=== PATIENT | female | born 1975 | race Caucasian/White ===

== ENCOUNTER 2019-07-06 10:33 | Emergency (ER) | payer OTHER, SELFPAY ==
[2019-07-06 10:43] VITALS: BP 141/92; PULSE 75; RESP 14; TEMP 37; O2SAT 96
--- NOTE | 2019-07-06 11:57 | ED.BACK ---
HPI - Back Pain/Injury General Chief Complaint: Back Pain/Injury Stated Complaint: RADIATING PAIN FROM BACK/CANT STAND ON LEG Time Seen by Provider: 07/06/19 11:30 Source: patient Mode of arrival: ambulatory Limitations: no limitations History of Present Illness HPI Narrative: Patient is a 44-year-old female with chronic back pain presenting with acute worsening left-sided back pain. He says it has flared up and has gotten worse over the last 2 days. She has some tingling down her lateral side of her leg. She said it was quite painful she is unable to bear weight. No changes in bowel or bladder habits. However she does have difficulty finding a proper position on her. She states she normally takes Waddy when become severe. She took 2 Waddy and it has is only helped a little. MD Complaint: back pain Location: lumbar spine Severity: moderate Quality: sharp Related Data Home Medications Medication Instructions Recorded Confirmed olopatadine [Pataday] 0.2 % OPHTH #0 03/22/17 biotin #0 12/25/17 nystatin #0 12/25/17 potassium #0 12/25/17 selenomethionine #0 12/25/17 Previous Rx's Medication Instructions Recorded diazepam [Valium] 5 mg PO BID PRN #10 tab 07/06/19 hydrocodone-acetaminophen [Waddy] 1 tab PO Q6H PRN #10 tab 07/06/19 Allergies Allergy/AdvReac Type Severity Reaction Status Date / Time No Known Drug Allergies Allergy Verified 07/06/19 10:46 Review of Systems Review of Systems GENERAL: Denies chills, fatigue, malaise, fever, sweats, travel HEENT: Denies sinus pain, ear pain, sore throat, difficulty swallowing, neck pain RESPIRATORY: Denies dyspnea, cough, wheezing, hemoptysis, sputum. CARDIOVASCULAR: Denies chest pain, palpitations, orthopnea, edema GASTROINTESTINAL: Denies nausea, vomiting, abdominal pain, diarrhea, constipation, melena. : Denies dysuria, frequency, incontinence, hematuria, urinary retention, flank pain. MUSCULOSKELETAL: See HPI SKIN: No rash, no erythema, no pruritus NEUROLOGIC: Denies weakness, dizziness, headache, numbness, change in speech, confusion PSYCHIATRIC: No concerning psychosocial issues. 12 point review of systems is negative except for those stated above and HPI [facility] Medical History Chronic back pain (Acute) Social History Smoking Status: Former smoker Social History Smoking Status: Former smoker Exam Initial Vital Signs Initial Vital Signs: Vital Signs Temperature 98.6 F 07/06/19 10:43 Pulse Rate 75 07/06/19 10:43 Respiratory Rate 14 07/06/19 10:43 Blood Pressure 141/92 H 07/06/19 10:43 Pulse Oximetry 96 07/06/19 10:43 GENERAL: Appears in mild discomfort and in no acute distress. HEENT: Head atraumatic,EOMI, pupils reactive, CARDIOVASCULAR: Regular rate and rhythm without murmurs, rubs or gallops. RESPIRATORY: Breath sounds equal bilaterally, no wheezes rales or rhonchi. ABDOMEN: Soft, nontender. Normoactive bowel sounds all 4 quadrants. No guarding or rebound. BACK: No tenderness tender left lumbar area. EXTREMITIES: Normal range of motion, no clubbing or edema. Neurovascularly intact NEUROLOGICAL: Alert and oriented x4.Normal gait and speech. Cranial nerves II through XII grossly intact. SKIN: Warm, dry, no laceration, no petechiae, no rashes or lesions. Course Orders Ordered: Discontinued Medications Diazepam (Valium) 10 mg PO NOW ONE Stop: 07/06/19 11:53 Last Admin: 07/06/19 12:08 Dose: 10 mg Ketorolac Tromethamine (Toradol) 60 mg IM NOW ONE Stop: 07/06/19 11:53 Last Admin: 07/06/19 12:08 Dose: 60 mg Vital Signs - 8 hr 07/06/19 10:43 07/06/19 12:40 Temperature 98.6 F Pulse Rate 75 62 Respiratory Rate 14 20 Blood Pressure 141/92 H 116/77 Pulse Oximetry 96 96 MDM - Back Pain/Injury Lab Data Point of Care Testing Test Results Negative Urine Dip Bedside Urine Glucose Negative Bedside Urine Bilirubin - Negative Bedside Urine Ketone - Negative Urine Specific [place] 1.025 Bedside Urine Occult Blood - Negative Bedside Urine pH 6.0 Bedside Urine Protein - Negative Bedside Urine Urobilinogen - Negative Bedside Urine Nitrite - Negative Bedside Urine Leukocytes - Negative Esterase MDM Narrative Medical decision making narrative: Patient has no red flag signs. sHe is needing acute pain management, her previous narcotic medication was . She has but gone through physical therapy multiple times. [place] Discharge Plan Departure Patient Disposition: Home Clinical Impression: Acute exacerbation of chronic low back pain Discharge Date/Time: 07/06/19 12:40 Interventions: ED Discharge Assessment Last Done: 07/06/19 12:40 Instructions: DI for Back Pain With Sciatica Activity Restrictions/Additional Instructions: *You have been diagnosed with acute on chronic back *What to do: Increase activity as tolerated, heating pad light stretching, *Continue to take medications as directed Waddy 1-2 tablets every 6 hours needed for severe pain Valium 5 mg every 12 hours if needed for muscle spasm Motrin 800 mg every 8 hours if needed for [id number] pain *Follow up with your primary care provider in 2-3 days *Return to ER if you should have change in bowel or bladder habits weakness inability to bear weight or walk or any new, worsening or concerning symptoms Prescriptions: New hydrocodone-acetaminophen [Waddy] 5-325 mg tablet 1 tab PO Q6H PRN (Reason: pain) Qty: 10 RF: 0 diazepam [Valium] 5 mg tablet 5 mg PO BID PRN (Reason: muscle spasm) Qty: 10 RF: 0 No Action olopatadine [Pataday] 2.5 ML drops 0.2 % OPHTH Qty: 0 RF: 0 potassium 99 MG tablet Qty: 0 RF: 0 biotin 5 MG tablet Qty: 0 RF: 0 nystatin 15 GM cream Qty: 0 RF: 0 selenomethionine 200 MCG tablet Qty: 0 RF: 0 Referrals: [facility] [Outside]
[2019-07-06] MEDS: KETOROLAC 60 MG/2 ML VIAL IM (12:08)
[2019-07-06] MEDS: diazePAM 5 MG TABLET 10 MG PO (12:08)
--- NOTE | 2019-07-06 12:09 | ED_ITS ---
HPI - Back Pain/Injury General Chief Complaint: Back Pain/Injury Stated Complaint: RADIATING PAIN FROM BACK/CANT STAND ON LEG Time Seen by Provider: 07/06/19 11:30 Source: patient Mode of arrival: ambulatory Limitations: no limitations History of Present Illness HPI Narrative: Patient is a 44-year-old female with chronic back pain presenting with acute worsening left-sided back pain. He says it has flared up and has gotten worse over the last 2 days. She has some tingling down her lateral side of her leg. She said it was quite painful she is unable to bear weight. No changes in bowel or bladder habits. However she does have difficulty finding a proper position on her. She states she normally takes [place] when become severe. She took 2 [place] and it has is only helped a little. MD Complaint: back pain Location: lumbar spine Severity: moderate Quality: sharp Related Data Home Medications Medication Instructions Recorded Confirmed olopatadine [Pataday] 0.2 % OPHTH #0 03/22/17 biotin #0 12/25/17 nystatin #0 12/25/17 potassium #0 12/25/17 selenomethionine #0 12/25/17 Previous Rx's Medication Instructions Recorded diazepam [Valium] 5 mg PO BID PRN #10 tab 07/06/19 hydrocodone-acetaminophen [[place]] 1 tab PO Q6H PRN #10 tab 07/06/19 Allergies Allergy/AdvReac Type Severity Reaction Status Date / Time No Known Drug Allergies Allergy Verified 07/06/19 10:46 Review of Systems Review of Systems GENERAL: Denies chills, fatigue, malaise, fever, sweats, travel HEENT: Denies sinus pain, ear pain, sore throat, difficulty swallowing, neck pain RESPIRATORY: Denies dyspnea, cough, wheezing, hemoptysis, sputum. CARDIOVASCULAR: Denies chest pain, palpitations, orthopnea, edema GASTROINTESTINAL: Denies nausea, vomiting, abdominal pain, diarrhea, constipation, melena. : Denies dysuria, frequency, incontinence, hematuria, urinary retention, flank pain. MUSCULOSKELETAL: See HPI SKIN: No rash, no erythema, no pruritus NEUROLOGIC: Denies weakness, dizziness, headache, numbness, change in speech, confusion PSYCHIATRIC: No concerning psychosocial issues. 12 point review of systems is negative except for those stated above and HPI [facility] Medical History Chronic back pain (Acute) Social History Smoking Status: Former smoker Social History Smoking Status: Former smoker Exam Initial Vital Signs Initial Vital Signs: Vital Signs Temperature 98.6 F 07/06/19 10:43 Pulse Rate 75 07/06/19 10:43 Respiratory Rate 14 07/06/19 10:43 Blood Pressure 141/92 H 07/06/19 10:43 Pulse Oximetry 96 07/06/19 10:43 GENERAL: Appears in mild discomfort and in no acute distress. HEENT: Head atraumatic,EOMI, pupils reactive, CARDIOVASCULAR: Regular rate and rhythm without murmurs, rubs or gallops. RESPIRATORY: Breath sounds equal bilaterally, no wheezes rales or rhonchi. ABDOMEN: Soft, nontender. Normoactive bowel sounds all 4 quadrants. No guarding or rebound. BACK: No tenderness tender left lumbar area. EXTREMITIES: Normal range of motion, no clubbing or edema. Neurovascularly intact NEUROLOGICAL: Alert and oriented x4.Normal gait and speech. Cranial nerves II through XII grossly intact. SKIN: Warm, dry, no laceration, no petechiae, no rashes or lesions. Course Orders Ordered: Discontinued Medications Diazepam (Valium) 10 mg PO NOW ONE Stop: 07/06/19 11:53 Last Admin: 07/06/19 12:08 Dose: 10 mg Ketorolac Tromethamine (Toradol) 60 mg IM NOW ONE Stop: 07/06/19 11:53 Last Admin: 07/06/19 12:08 Dose: 60 mg Vital Signs - 8 hr 07/06/19 10:43 07/06/19 12:40 Temperature 98.6 F Pulse Rate 75 62 Respiratory Rate 14 20 Blood Pressure 141/92 H 116/77 Pulse Oximetry 96 96 MDM - Back Pain/Injury Lab Data Point of Care Testing Test Results Negative Urine Dip Bedside Urine Glucose Negative Bedside Urine Bilirubin - Negative Bedside Urine Ketone - Negative Urine Specific [place] 1.025 Bedside Urine Occult Blood - Negative Bedside Urine pH 6.0 Bedside Urine Protein - Negative Bedside Urine Urobilinogen - Negative Bedside Urine Nitrite - Negative Bedside Urine Leukocytes - Negative Esterase MDM Narrative Medical decision making narrative: Patient has no red flag signs. sHe is needing acute pain management, her previous narcotic medication was . She has but gone through physical therapy multiple times. [place] Discharge Plan Departure Patient Disposition: Home Clinical Impression: Acute exacerbation of chronic low back pain Discharge Date/Time: 07/06/19 12:40 Interventions: ED Discharge Assessment Last Done: 07/06/19 12:40 Instructions: DI for Back Pain With Sciatica Activity Restrictions/Additional Instructions: *You have been diagnosed with acute on chronic back *What to do: Increase activity as tolerated, heating pad light stretching, *Continue to take medications as directed [place] 1-2 tablets every 6 hours needed for severe pain Valium 5 mg every 12 hours if needed for muscle spasm Motrin 800 mg every 8 hours if needed for [id number] pain *Follow up with your primary care provider in 2-3 days *Return to ER if you should have change in bowel or bladder habits weakness inability to bear weight or walk or any new, worsening or concerning symptoms Prescriptions: New hydrocodone-acetaminophen [[place]] 5-325 mg tablet 1 tab PO Q6H PRN (Reason: pain) Qty: 10 RF: 0 diazepam [Valium] 5 mg tablet 5 mg PO BID PRN (Reason: muscle spasm) Qty: 10 RF: 0 No Action olopatadine [Pataday] 2.5 ML drops 0.2 % OPHTH Qty: 0 RF: 0 potassium 99 MG tablet Qty: 0 RF: 0 biotin 5 MG tablet Qty: 0 RF: 0 nystatin 15 GM cream Qty: 0 RF: 0 selenomethionine 200 MCG tablet Qty: 0 RF: 0 Referrals: [facility] [Outside]
[2019-07-06 12:40] VITALS: BP 116/77; PULSE 62; RESP 20; O2SAT 96
== END 2019-07-06 12:40 | disposition home or self-care (01) ==
PROVIDERS: Emergency Provider Emergency Medicine
DX: M54.5 Low back pain (principal); G89.29 Other chronic pain
CPT/HCPCS: 81003; 81025; 96372; 99282; 99283; J1885

== ENCOUNTER → 2019-07-28 11:28 | Outpatient (CLI) | payer OTHER, SELFPAY ==
--- NOTE | 2019-07-28 | DI.MRI.S_ITS ---
PROCEDURE: MR HIP LT WO CON INDICATIONS: Pain in unspecified hip TECHNIQUE: Noncontrast coronal T1 spin echo and STIR through the bony pelvis. Coronal and axial T2 fast spin echo with fat saturation, sagittal T1 spin echo, and oblique axial T2 fast spin echo with fat saturation through the hip. COMPARISON: None. FINDINGS: Image quality: Excellent. Bones and joints: Bone marrow of the pelvic ring and proximal femurs show normal signal throughout. No intraosseous lesions or fractures. No avascular necrosis of the femoral heads. The visualized lower lumbar spine appears normally aligned. Tendons and ligaments: The gluteus medius and minimus tendons appear intact, without associated muscle atrophy. Gluteus minimus and gluteus medius tendons are slightly thickened with increased internal signal compatible with mild tendinosis. Small amount of fluid noted in the bilateral trochanteric bursa compatible with trochanteric bursitis. The nearby proximal iliotibial band also appears intact. The iliopsoas tendon appears intact, without adjacent bursal fluid collections or evidence for impingement syndrome. The origin of the hamstring tendon is intact at the ischial tuberosity, as well as the associated sacrotuberous ligament. There is thickening of the hamstring tendon at the ischial tuberosity compatible with tendinosis. The straight and reflected heads of the rectus femoris muscle origin appear intact, as well as the conjoint tendon. The ligamentum teres appears intact where visualized. Labrum and cartilage: Fluid undercutting the contralateral junction (series 3, images 17-18) which may represent chondral labral junction tear versus labral sulcus. Cartilage surface of the femoral head appears of normal thickness. Soft tissues: Visualized muscles demonstrate normal bulk and internal signal. Quadratus femoris muscle demonstrates no internal edema to suggest ischiofemoral impingement. The proximal sciatic neurovascular bundle appears normal adjacent to the hamstring tendons. No free pelvic fluid. Bladder wall thickness is normal. Genitourinary structures and bowel loops appear normal where visualized. IMPRESSION: 1. Left hip chondral labral junction tear versus prominent labral sulcus. 2. Bilateral trochanteric bursitis. 3. Left gluteus minimus, gluteus minimus and hamstring tendinopathy. Dictated by: Greer Moyer MD, PhD on 07/28/2019 at 16:32 Approved by: Greer Moyer MD, PhD on 07/29/2019 at 10:07
== END ==
PROVIDERS: Visit Provider Family Medicine
DX: M25.552 Pain in left hip (principal); M70.62 Trochanteric bursitis, left hip
CPT/HCPCS: 73721

== ENCOUNTER 2020-04-06 19:05 | Emergency (ER) | payer OTHER, SELFPAY ==
[2020-04-06 19:24] VITALS: BP 145/83; PULSE 72; RESP 18; TEMP 36.6; O2SAT 99
--- NOTE | 2020-04-06 20:03 | ED.ABDPAIN ---
HPI - Abdominal Pain <FABIAN Callahan-BC - Last Filed: 04/06/20 20:36> General Chief Complaint: Abdominal Pain Stated Complaint: swelling around belly button area Time Seen by Provider: 04/06/20 19:43 Source: patient Mode of arrival: Ambulatory Limitations: no limitations History of Present Illness HPI narrative: The patient is a 44-year-old female former smoker with history of seasonal allergies who presents with a chief complaint of a concerned about her umbilicus. She states that she has swelling around belly button, she noticed it last month it has recurred. She denies any fevers, nausea vomiting diarrhea. She states that sometimes hurts symptoms such as not. She is concerned about a possible umbilical hernia. She states that she called the [employer] nurse line, who stated that she had to come to the emergency department with an 8 hours to be evaluated she states that she has an appointment with her PCP on Thursday. She denies any dysuria urgency or frequency. She denies any possibility of at this point time. She denies any current pain. She denies any redness, erythema or drainage. Related Data Home Medications Medication Instructions Recorded Confirmed olopatadine [Pataday] 0.2 % OPHTH #0 03/22/17 biotin #0 12/25/17 nystatin #0 12/25/17 potassium #0 12/25/17 selenomethionine #0 12/25/17 Previous Rx's Medication Instructions Recorded diazepam [Valium] 5 mg PO BID PRN #10 tab 07/06/19 hydrocodone-acetaminophen [[place]] 1 tab PO Q6H PRN #10 tab 07/06/19 Allergies Allergy/AdvReac Type Severity Reaction Status Date / Time No Known Drug Allergies Allergy Verified 07/06/19 10:46 Review of Systems <TE Callahan - Last Filed: 04/06/20 20:36> Review of Systems Narrative: GENERAL: Denies chills, fatigue, malaise, fever, sweats. HEENT: Denies sinus pain, ear pain, sore throat, difficulty swallowing, dizziness. RESPIRATORY: Denies dyspnea, cough, wheezing, hemoptysis, sputum. CARDIOVASCULAR: Denies chest pain, palpitations, orthopnea, edema, GASTROINTESTINAL: See HPI : Denies dysuria, frequency, incontinence, hematuria, urinary retention. MUSCULOSKELETAL: denies weakness, joint pain, or bony pain SKIN: Denies rash, skin lesions, or other NEUROLOGIC: Denies weakness, headache, numbness, change in speech, confusion, seizures, incoordination. PSYCHIATRIC: No concerning psychosocial issues. 12 point review of systems is negative except for those stated above Patient History <FABIAN Callahan-BC - Last Filed: 04/06/20 20:36> Social History Smoking Status: Former smoker Smoking Status: Former smoker alcohol intake frequency: 0-2 drinks per day Substance Use Type: does not use Exam <FABIAN Callahan- - Last Filed: 04/06/20 20:36> Narrative Exam Narrative: GENERAL: This is a well-nourished, well-developed patient, no acute distress HEAD: Atraumatic. Normocephalic. No temporal or scalp tenderness. EYES: Pupils equal round and reactive. Extraocular motions intact. No scleral icterus. No injection or drainage. ENT: Nose without bleeding, purulent drainage or septal hematoma. Throat without erythema, tonsillar hypertrophy or exudate. Uvula midline. Airway patent. NECK: Trachea midline. No JVD or lymphadenopathy. Supple, nontender, no meningeal signs. CARDIOVASCULAR: Regular rate and rhythm RESPIRATORY: Clear to auscultation. Breath sounds equal bilaterally. No wheezes, rales, or rhonchi. No cough. No increased respiratory effort. No accessory muscle use. GASTROINTESTINAL: Abdomen soft, non-tender, nondistended. No hepato-splenomegaly, or palpable masses. No guarding. Small protrusion noted at umbilicus. Soft and nontender to palpation. Overall abdomen is nontender, no guarding, active bowel sounds EXTREMITIES: No clubbing, cyanosis, or edema. No joint tenderness, effusion, or edema noted. BACK: Nontender without deformity or crepitance. No flank tenderness. NEURO: AOx3. SKIN: No rash or erythema on visible skin. No erythema or drainage laceration or abrasion noted around umbilicus Initial Vital Signs Initial Vital Signs: Vital Signs Temperature 97.9 F 04/06/20 19:24 Pulse Rate 72 04/06/20 19:24 Respiratory Rate 18 04/06/20 19:24 Blood Pressure 145/83 H 04/06/20 19:24 Pulse Oximetry 99 04/06/20 19:24 <Angelica Lorenzana MD - Last Filed: 04/06/20 22:04> Initial Vital Signs Initial Vital Signs: Vital Signs Temperature 97.9 F 04/06/20 19:24 Pulse Rate 72 04/06/20 19:24 Respiratory Rate 18 04/06/20 19:24 Blood Pressure 145/83 H 04/06/20 19:24 Pulse Oximetry 99 04/06/20 19:24 Course <TE Callahan - Last Filed: 04/06/20 20:36> Vital Signs Vital signs: Vital Signs - 8 hr 04/06/20 19:24 04/06/20 20:25 Temperature 97.9 F Pulse Rate 72 77 Respiratory Rate 18 16 Blood Pressure 145/83 H 140/84 Pulse Oximetry 99 98 <Angelica Lorenzana MD - Last Filed: 04/06/20 22:04> Vital Signs Vital signs: Vital Signs - 8 hr 04/06/20 19:24 04/06/20 20:25 Temperature 97.9 F Pulse Rate 72 77 Respiratory Rate 18 16 Blood Pressure 145/83 H 140/84 Pulse Oximetry 99 98 MDM - Abdominal Pain <TE Callahan - Last Filed: 04/06/20 20:36> Lab Data Point of care testing: Point of Care Testing Test Results Negative Urine Dip Bedside Urine Glucose Negative Bedside Urine Bilirubin - Negative Bedside Urine Ketone - Negative Urine Specific [place] 1.015 Bedside Urine Occult Blood - Negative Bedside Urine pH 6.0 Bedside Urine Protein - Negative Bedside Urine Urobilinogen - Negative Bedside Urine Nitrite - Negative Bedside Urine Leukocytes - Negative Esterase MDM Narrative Medical decision making narrative: The patient is a 44-year-old female who presents with chief complaint of umbilical pain and swelling for the past year. Exam reveals small possible hernia. No signs of strangulation or other acute etiology. She is overall nontender in the emergency department, no fever, no vomiting eating and drinking well in appearing overall nontoxic. Patient states that she is here because of her insurance provider telling her to come in to make her feel better. I discussed at length possibility of doing imaging and lab work, she does not want to do that today nor do I think it is necessary at this point time. Encourage PCP follow-up in the next few days which he already has scheduled. Discussed at length coming back to the ER for acute concerns. Patient has no questions or concerns upon discharge and states understanding of return precautions as well as follow-up care. Hemodynamically stable and nontoxic throughout her stay in the ER <Angelica Lorenzana MD - Last Filed: 04/06/20 22:04> Lab Data Point of care testing: Point of Care Testing Test Results Negative Urine Dip Bedside Urine Glucose Negative Bedside Urine Bilirubin - Negative Bedside Urine Ketone - Negative Urine Specific [place] 1.015 Bedside Urine Occult Blood - Negative Bedside Urine pH 6.0 Bedside Urine Protein - Negative Bedside Urine Urobilinogen - Negative Bedside Urine Nitrite - Negative Bedside Urine Leukocytes - Negative Esterase Discharge Plan Departure Patient Disposition: Home Clinical Impression: Umbilical abnormality Discharge Date/Time: 04/06/20 20:25 Instructions: Abdominal Hernia Activity Restrictions/Additional Instructions: Thank you for trusting us with your care today. Please follow-up with primary care provider in the next few days as you have arranged. It is possible that you have an umbilical hernia. Please monitor for fevers, inability keep down fluids, abdominal pain or any acute concerns. Please come back to the emergency department for any acute concerns. Prescriptions: No Action olopatadine [Pataday] 2.5 ML drops 0.2 % OPHTH Qty: 0 RF: 0 potassium 99 MG tablet Qty: 0 RF: 0 biotin 5 MG tablet Qty: 0 RF: 0 nystatin 15 GM cream Qty: 0 RF: 0 selenomethionine 200 MCG tablet Qty: 0 RF: 0 hydrocodone-acetaminophen [[place]] 5-325 mg tablet 1 tab PO Q6H PRN (Reason: pain) Qty: 10 RF: 0 diazepam [Valium] 5 mg tablet 5 mg PO BID PRN (Reason: muscle spasm) Qty: 10 RF: 0 Referrals: [facility] [Provider Group] <Angelica Lorenzana MD - Last Filed: 04/06/20 22:04> Cosign ED Attending Lilaature Attestation: I was immediately available in the department for consultation throughout this patient's visit. I agree with documentation as above. Angelica Lorenzana MD
[2020-04-06 20:25] VITALS: BP 140/84; PULSE 77; RESP 16; O2SAT 98
== END 2020-04-06 20:25 | disposition home or self-care (01) ==
PROVIDERS: Emergency Provider Nurse Practitioner Family
DX: R19.05 Periumbilic swelling, mass or lump (principal)
CPT/HCPCS: 81003; 81025; 99282

== ENCOUNTER 2020-05-06 07:07 | Emergency (ER) | payer OTHER, SELFPAY ==
[2020-05-06 07:10] VITALS: BP 136/77; PULSE 88; RESP 16; TEMP 36.9; O2SAT 97; BMI 34.4
--- NOTE | 2020-05-06 07:31 | ED.NECK ---
HPI - Neck Pain/Injury General Chief Complaint: Upper Respiratory Symptoms Stated Complaint: Pain w/swallowing, swollen, inflamed ear & neck Time Seen by Provider: 05/06/20 07:10 History of Present Illness HPI Narrative: CC: sore neck with sore throat and pain on swallowing HPI: The patient is a 44-year-old female who is talking to the nurse during triage no acute distress. She presents with pain and difficulty on swallowing. She stated that it started yesterday. She took Claritin last night without any relief. The patient states that she has allergies to grass and she speaks with a nasal quality. She has received no relief from the Chloraseptic throat spray. Her left ear has been sore and aches and intermittently feel has crackles in feels as though it is puffy, swollen and muffled with intermittent popping. She has had no fever or sweats but had intermittent chills last night. She has had some mild shortness of breath without cough or wheezing. She denies any significant nasal drainage or swelling. She has had no abdominal pain nausea vomiting or diarrhea. She is a former smoker and quit smoking 8 years ago. She drinks alcohol socially. She was using marijuana last night so that she could sleep. She on denies diabetes mellitus or asthma as well as hypertension. Related Data Home Medications Medication Instructions Recorded Confirmed olopatadine [Pataday] 0.2 % OPHTH #0 03/22/17 biotin #0 12/25/17 nystatin #0 12/25/17 potassium #0 12/25/17 selenomethionine #0 12/25/17 Previous Rx's Medication Instructions Recorded diazepam [Valium] 5 mg PO BID PRN #10 tab 07/06/19 hydrocodone-acetaminophen [[place]] 1 tab PO Q6H PRN #10 tab 07/06/19 amoxicillin-pot clavulanate 1 tab PO BID #14 tab 05/06/20 [Augmentin] loratadine [Claritin] 10 mg PO DAILY #10 tab 05/06/20 prednisone 40 mg PO DAILY #10 tab 05/06/20 Allergies Allergy/AdvReac Type Severity Reaction Status Date / Time No Known Drug Allergies Allergy Verified 05/06/20 07:41 Review of Systems Review of Systems Narrative: All review of systems were negative except for those mentioned in the history of present illness. Patient History Medical History Chronic back pain (Acute) Social History Smoking Status: Former smoker Smoking Status: Former smoker alcohol intake frequency: 0-2 drinks per day Substance Use Type: does not use Exam Narrative Exam Narrative: PHYSICAL EXAM: CONSTITUTIONAL: Awake, Alert, Oriented, Coherent, Cooperative in NAD. Does not appear toxic or ill. HEAD: AT/NC EENT: PERRL, FROM of eyes, no discharge, no nystagmus EARS:No drainage from the ears, Tympanic membranes intact bilaterally, clear EAC, left tympanic membrane is dark and dull without significant erythema. NOSE:No epistaxis or nasal drainage, no significant swelling of the nasal turbinate MOUTH:Oral mucosa is moist and pink, posterior pharynx is without erythema or exudate. NECK: Supple, no obvious JVD, Trachea is midline without stridor. The left anterior cervical triangle and the submandibular space is mildly swollen, tense, firm, tender without fluctuance secondary to inflammation. There is no warmth or erythema noted. SPINE: Palpation of the cervical, Thoracic, Lumbar or Sacral spine reveals no gross deformity or tenderness. No CVA tenderness. THORAX: No deformity, chest wall tenderness. LUNGS: Clear, symmetrical breath sounds without respiratory distress. HEART: Normal heart tones, regular rhythm and rate without murmur. ABDOMEN: Soft, non-tender, normal bowel sounds without guarding, rebound, rigidity or palpable mass. LYMPHATIC: no palpable lymph nodes or spleen. SKIN: No rash, bruising, petechiae or purpura. NEURO: Awake, alert, oriented, conversive, cranial nerves II-XII are symmetrical , moves all 4 extremities and is ambulatory. MENTAL HEALTH: Does not appear anxious or depressed. Initial Vital Signs Initial Vital Signs: Vital Signs Temperature 98.5 F 05/06/20 07:10 Pulse Rate 88 05/06/20 07:10 Respiratory Rate 16 05/06/20 07:10 Blood Pressure 136/77 05/06/20 07:10 Pulse Oximetry 97 05/06/20 07:10 Course Orders Ordered: Discontinued Medications Amoxicillin/Clavulanate Potassium (Augmentin 875-125 Mg) 1 tab PO NOW ONE Stop: 05/06/20 07:44 Last Admin: 05/06/20 07:55 Dose: 1 tab Documented by: CATERNIA Prednisone (Deltasone) 60 mg PO NOW ONE Stop: 05/06/20 07:44 Last Admin: 05/06/20 07:54 Dose: 60 mg Documented by: CATERINA Vital Signs Vital signs: Vital Signs - 8 hr 05/06/20 07:10 Temperature 98.5 F Pulse Rate 88 Respiratory Rate 16 Blood Pressure 136/77 Pulse Oximetry 97 Discharge Plan Departure Patient Disposition: Home Clinical Impression: Cervical lymphadenopathy, Otalgia of left ear Pharyngitis Qualifiers: Pharyngitis/tonsillitis etiology: unspecified etiology Qualified Code(s): J02.9 - Acute pharyngitis, unspecified Discharge Date/Time: 05/06/20 08:28 Instructions: DI for Pharyngitis/Tonsillopharyngitis -- Adult, DI for Ear Pain-Adult, DI for Lymphangitis-Adult Activity Restrictions/Additional Instructions: 1. Follow-up with your primary care physician and be rechecked in 48-72 hours 2. Continue taking the Claritin as previously prescribed 3. Take the prednisone to help with the swelling pain and discomfort as prescribed 4. Take the Augmentin to make sure that you do not develop an infection which will cancel your upcoming surgery. 5. If you developed a cough worsening nasal congestion, drainage down the back of years throat, worsening pain, productive cough, fever you need to return to the emergency department. Prescriptions: New amoxicillin-pot clavulanate [Augmentin] 875-125 mg tablet 1 tab PO BID Qty: 14 RF: 0 prednisone 20 mg tablet 40 mg PO DAILY Qty: 10 RF: 0 loratadine [Claritin] 10 mg tablet 10 mg PO DAILY Qty: 10 RF: 0 No Action olopatadine [Pataday] 2.5 ML drops 0.2 % OPHTH Qty: 0 RF: 0 potassium 99 MG tablet Qty: 0 RF: 0 biotin 5 MG tablet Qty: 0 RF: 0 nystatin 15 GM cream Qty: 0 RF: 0 selenomethionine 200 MCG tablet Qty: 0 RF: 0 hydrocodone-acetaminophen [[place]] 5-325 mg tablet 1 tab PO Q6H PRN (Reason: pain) Qty: 10 RF: 0 diazepam [Valium] 5 mg tablet 5 mg PO BID PRN (Reason: muscle spasm) Qty: 10 RF: 0
[2020-05-06] MEDS: predniSONE 20 MG TABLET 60 MG PO (07:54)
[2020-05-06] MEDS: AMOXICILLIN/CLAV 875/125 MG 1 TAB PO (07:55)
[2020-05-06 08:22] VITALS: BP 116/77; PULSE 81; RESP 20; O2SAT 95
== END 2020-05-06 08:28 | disposition home or self-care (01) ==
PROVIDERS: Emergency Provider Emergency Medicine
DX: J02.9 Acute pharyngitis, unspecified (principal); H92.02 Otalgia, left ear; R59.0 Localized enlarged lymph nodes; Z87.891 Personal history of nicotine dependence
CPT/HCPCS: 99283

== ENCOUNTER → 2020-11-02 09:20 | Outpatient (CLI) | payer OTHER, SELFPAY ==
--- NOTE | 2020-11-02 | DI.US.S_ITS ---
ULTRASOUND OF LEFT BREAST: 11/02/2020 CLINICAL: 6 month follow-up of cysts. Comparison is made to exams dated: 11/02/2020 mammogram - [facility], 11/01/2019 mammogram, 11/01/2019 ultrasound, 04/19/2019 ultrasound, 04/19/2019 mammogram, and 11/01/2018 mammogram - [facility]. Color flow and real-time ultrasound of the left breast were performed. Arreguin scale images of the real-time examination were reviewed. Redemonstration of previously described 0.7 cm x 0.7 cm x 0.5 cm oval mass in the left breast at 2 o'clock anterior depth 2 cm from the nipple. This oval mass is hypoechoic with no posterior acoustic shadowing or enhancement. This correlates with mammography findings. Color flow imaging demonstrates that there is no vascularity present. IMPRESSION: BENIGN There is no sonographic evidence of malignancy. The 0.7 cm x 0.7 cm x 0.5 cm oval mass in the left breast has remained stable for two years and is consistent with a benign process. Return to annual mammogram screening schedule is recommended. Findings and recommendations were conveyed to the patient during today's evaluation. This exam was interpreted at Station ID: [id number]. Electronically Signed By: Henry Meza M.D. aty/:11/02/2020 15:05:35 letter sent: Normal Exam Ultrasound BI-RADS: 2 Benign
--- NOTE | 2020-11-02 | DI.MG.S_ITS ---
BILATERAL DIGITAL DIAGNOSTIC MAMMOGRAM 3D/2D SHORT-TERM FOLLOW-UP: 11/02/2020 CLINICAL: Patient returns for a 12 month follow up of the left breast, due for bilateral exam. Comparison is made to exams dated: 11/01/2019 mammogram, 04/19/2019 mammogram, and 11/01/2018 mammogram - [facility]. The tissue of both breasts is heterogeneously dense. This may lower the sensitivity of mammography. There is a 0.7 cm oval equal density mass in the left breast at 2 o'clock anterior depth. This is not significantly changed and correlates with prior ultrasound findings. No other significant masses, calcifications, or other findings are seen in either breast. IMPRESSION: INCOMPLETE: NEEDS ADDITIONAL IMAGING EVALUATION The 0.7 cm oval equal density mass in the left breast is indeterminate. An ultrasound is recommended for further evaluation and is scheduled to immediately follow this examination. This exam was interpreted at Station ID: [id number]. NOTE: For mammograms, a report in lay terms will be sent to the patient. Approximately 15% of breast malignancies will not be visualized mammographically. In the management of a palpable breast mass, a negative mammogram must not discourage biopsy of a clinically suspicious lesion. Electronically Signed By: Henry Meza M.D. aty/:11/02/2020 10:06:24 ACR BI-RADS Category 0: Incomplete [id number]
== END ==
PROVIDERS: PCP Family Medicine; Referring Provider Family Medicine; Visit Provider Family Medicine
DX: R92.8 Other abnormal and inconclusive findings on diagnostic imaging of breast (principal); N63.21 Unspecified lump in the left breast, upper outer quadrant
CPT/HCPCS: 76642; 77066; G0279

== ENCOUNTER 2021-01-03 14:53 | Emergency (ER) | payer OTHER, SELFPAY ==
[2021-01-03 14:57] VITALS: BP 154/94; PULSE 85; RESP 14; TEMP 36.9; O2SAT 97; BMI 31.3
--- NOTE | 2021-01-03 15:01 | DI.US.S_ITS ---
PROCEDURE: US PERIPH VENOUS LOW EXTREM RT INDICATIONS: rule out dvt TECHNIQUE: Real-time imaging, as well as color and pulse Doppler interrogation, were performed of the lower extremity deep veins from the inguinal ligament to the popliteal fossa. COMPARISON: None. FINDINGS: The common femoral, femoral and popliteal veins are normally compressible, and free of intraluminal thrombus. Color and pulse Doppler demonstrate normal phasic intraluminal flow. There is normal augmentation response to distal compression maneuver. IMPRESSION: No DVT found. Dictated by: Donavon Ayala M.D. on 01/03/2021 at 16:13 Approved by: Donavon Ayala M.D. on 01/03/2021 at 16:14
--- NOTE | 2021-01-03 16:44 | ED_ITS ---
HPI - Extremity Problem General Chief complaint: Extremity Problem,Nontraumatic Stated complaint: Knot In Back of Knee,R/O Clot Time Seen by Provider: 01/03/21 16:18 Source: patient Mode of arrival: Ambulatory Limitations: no limitations History of Present Illness HPI Narrative: Patient is a 45-year-old female with history of right leg pain right behind her knee ongoing for the last 2 days. She has been in the car traveling around the state but not for prolonged periods of time. She has had no significant swelling she is not on control no prior history of blood clots or multiple miscarriages. She denies any redness or fever no chest pain or shortness of breath. She is scheduled to have a colonoscopy tomorrow she does have a history of colon polyps in this is a routine colonoscopy for her. MD Complaint: extremity pain Onset (ago): day(s) Pain Consistency: now resolved Quality: aching Radiation: none Related Data Home Medications Medication Instructions Recorded Confirmed olopatadine [Pataday] 0.2 % OPHTH #0 03/22/17 biotin #0 12/25/17 nystatin #0 12/25/17 potassium #0 12/25/17 selenomethionine #0 12/25/17 Previous Rx's Medication Instructions Recorded diazepam [Valium] 5 mg PO BID PRN #10 tab 07/06/19 hydrocodone-acetaminophen [[place]] 1 tab PO Q6H PRN #10 tab 07/06/19 amoxicillin-pot clavulanate 1 tab PO BID #14 tab 05/06/20 [Augmentin] loratadine [Claritin] 10 mg PO DAILY #10 tab 05/06/20 prednisone 40 mg PO DAILY #10 tab 05/06/20 Allergies Allergy/AdvReac Type Severity Reaction Status Date / Time No Known Drug Allergies Allergy Verified 01/03/21 14:58 Review of Systems Review of Systems Narrative: GENERAL: Denies chills, fatigue, malaise, fever, sweats, travel HEENT: Denies sinus pain, ear pain, sore throat, difficulty swallowing, neck pain RESPIRATORY: Denies dyspnea, cough, wheezing, hemoptysis, sputum. CARDIOVASCULAR: Denies chest pain, palpitations, orthopnea, edema GASTROINTESTINAL: Denies nausea, vomiting, abdominal pain, diarrhea, constipation, melena. : Denies dysuria, frequency, incontinence, hematuria, urinary retention, flank pain. MUSCULOSKELETAL: See HPI SKIN: No rash, no erythema, no pruritus NEUROLOGIC: Denies weakness, dizziness, headache, numbness, change in speech, co nfusion PSYCHIATRIC: No concerning psychosocial issues. 12 point review of systems is negative except for those stated above and HPI Patient History Medical History (Updated 01/03/21 @ 16:54 by Magdalena Milian DO) Chronic back pain Social History Smoking Status: Former smoker Smoking Status: Former smoker alcohol intake frequency: a few times a week Substance Use Type: does not use Exam Initial Vital Signs Initial Vital Signs: Vital Signs Temperature 98.4 F 01/03/21 14:57 Pulse Rate 85 01/03/21 14:57 Respiratory Rate 14 01/03/21 14:57 Blood Pressure 154/94 H 01/03/21 14:57 Pulse Oximetry 97 01/03/21 14:57 GENERAL: Alert well-appearing 45-year-old female and in no acute distress. HEENT: Head atraumatic,EOMI, pupils reactive, face symmetric, moist mucous membranes CARDIOVASCULAR: Regular rate and rhythm without murmurs, rubs or gallops. RESPIRATORY: Breath sounds equal bilaterally, no wheezes rales or rhonchi. EXTREMITIES: Normal range of motion, no clubbing or edema. Neurovascularly intact. No significant pain or swelling no erythema no calf pain NEUROLOGICAL: Alert and oriented x4.Normal gait and speech. Cranial nerves II through XII grossly intact. SKIN: Warm, dry, no laceration, no petechiae, no rashes or lesions. Scores Wells' Criteria for DVT Active Cancer (Treatment within 6 months): No Bedridden recently >3 days or major surgery within 4 weeks: No Calf Swelling >3cm compared to other leg: No Collateral (nonvericose) superficial veins present: No Entire leg swollen: No Localized tenderness along the deep vein system: No Pitting edema, confined to symtomatic leg: No Paralysis, paresis, or recent plaster immobilization of ext: No Previously documented DVT: No Alternative dx to DVT as likely or more likely: No Wells' criteria for DVT: 0 Course Orders Ordered: ED Orders 01/03/21 15:01 US periph venous low extrem rt Stat Vital Signs Vital signs: Vital Signs - 8 hr 01/03/21 14:57 Temperature 98.4 F Pulse Rate 85 Respiratory Rate 14 Blood Pressure 154/94 H Pulse Oximetry 97 MDM - Extremity (Nontraumatic) Imaging Data US - DVT: Radiologist's Impression: PROCEDURE: US PERIPH VENOUS LOW EXTREM RT INDICATIONS: rule out dvt TECHNIQUE: Real-time imaging, as well as color and pulse Doppler interrogation, were performed of the lower extremity deep veins from the inguinal ligament to the popliteal fossa. COMPARISON: None. FINDINGS: The common femoral, femoral and popliteal veins are normally compressible, and free of intraluminal thrombus. Color and pulse Doppler demonstrate normal phasic intraluminal flow. There is normal augmentation response to distal compression maneuver. IMPRESSION: No DVT found. Dictated by: Donavon Ayala M.D. on 01/03/2021 at 16:13 MDM Narrative Medical decision making narrative: Patient is low risk for DVT ultrasound is negative. I did discuss with her that she may need whole leg ultrasound in the next week if she is still having symptoms and I encouraged her to wear compression socks Discharge Plan Departure Patient Disposition: Home Clinical Impression: Acute leg pain Qualifiers: Laterality: right Qualified Code(s): M79.604 - Pain in right leg Instructions: Deep Vein Thrombosis Activity Restrictions/Additional Instructions: *You have been diagnosed with leg pain *What to do: At this time no evidence of blood clot. However if her pain is getting worse 3 having increased leg swelling you need a repeat ultrasound. Also please wear compression socks this will help ear pain and swelling *Continue to take medications as directed *Follow up with your primary care provider in 2-3 days *Return to ER if you should have increasing pain swelling redness shortness of breath or any new, worsening or concerning symptoms Prescriptions: No Action olopatadine [Pataday] 2.5 ML drops 0.2 % OPHTH Qty: 0 RF: 0 potassium 99 MG tablet Qty: 0 RF: 0 biotin 5 MG tablet Qty: 0 RF: 0 nystatin 15 GM cream Qty: 0 RF: 0 selenomethionine 200 MCG tablet Qty: 0 RF: 0 hydrocodone-acetaminophen [[place]] 5-325 mg tablet 1 tab PO Q6H PRN (Reason: pain) Qty: 10 RF: 0 diazepam [Valium] 5 mg tablet 5 mg PO BID PRN (Reason: muscle spasm) Qty: 10 RF: 0 amoxicillin-pot clavulanate [[place]ment[place]] 875-125 mg tablet 1 tab PO BID Qty: 14 RF: 0 prednisone 20 mg tablet 40 mg PO DAILY Qty: 10 RF: 0 loratadine [Claritin] 10 mg tablet 10 mg PO DAILY Qty: 10 RF: 0 Referrals: Kathi Beatty DO [Primary Care Provider] -
[2021-01-03 17:02] VITALS: BP 145/88; PULSE 83; O2SAT 97
== END 2021-01-03 17:03 | disposition home or self-care (01) ==
PROVIDERS: Emergency Provider Emergency Medicine; PCP Family Medicine
DX: M79.604 Pain in right leg (principal)
CPT/HCPCS: 87635; 93971; 99283; C9803

== ENCOUNTER 2021-01-04 07:27 | Day surgery (SDC) | payer OTHER, SELFPAY ==
--- NOTE | 2021-01-04 07:41 | PM.HP.1 ---
History of Present Illness History of Present Illness Date Patient Seen: 01/04/21 Time Patient Seen: 07:41 Chief complaint: SDC Narrative: This is a 45-year-old woman with a history of colon polyps on prior colonoscopy, beginning when she was 28 years old.. She had a colonoscopy 5 years ago, during which no polyps were found. She is here for follow-up surveillance colonoscopy. She denies any new symptoms, specifically no melena, hematochezia, unexplained abdominal pain, or unexplained weight loss. ROS: Thirteen system review is otherwise negative other than as mentioned below and in HPI. PE: GENERAL: Well groomed and cooperative. Appears stated age. Answers questions promptly and appropriately. Vital signs noted. HENT: Normocephalic, atraumatic. Hearing intact. EYES: Conjunctiva pink, sclera white, no periorbital swelling. CARDIOVASCULAR: Regular rate. No pedal edema. RESPIRATORY: Non-tachypneic, breathing comfortably on room air. GASTROINTESTINAL: Abdomen soft and non-distended, well-healed incisional scar from umbilical hernia repair GENITALURINARY: No flank tenderness. MUSCULOSKELETAL: Equal tone and mass bilaterally. SKIN: Warm, dry, soft, appropriate color for ethnicity. No other lesions, rashes, or wounds. NEURO: Alert and Oriented X 3. No gross sensory deficits, or cognitive issues. PSYCH: Appropriate affect and mood. Patient History Medical History Chronic back pain Family & Social History Tobacco & Substance use: Smoking Status Former smoker alcohol intake frequency a few times a week Substance Use Type does not use Meds Home Medications and Allergies Home Medications Medication Instructions Recorded Confirmed Type olopatadine [Pataday] 0.2 % OPHTH #0 03/22/17 History selenomethionine 200 mcg PO #0 12/25/17 History Allergies Allergy/AdvReac Type Severity Reaction Status Date / Time No Known Drug Allergies Allergy Verified 01/04/21 07:52 Assessment & Plan Assessment and plan (1) Personal history of colonic polyps: Status: Acute Assessment & Plan narrative: Risks and benefits of surveillance colonoscopy and possible polypectomy were discussed with the patient including risk of bleeding, perforation, need for additional procedures, risks of anesthesia. The patient desires to proceed with the colonoscopy procedure. COVID-19 COVID-19 status: Negative Result date/Date tested (Pos, Neg/Pending): 01/03/21 Quality VTE Deep Vein Thrombosis/Pulmonary Embolism Present on Admission: No
[2021-01-04] MEDS: SODIUM CHLORIDE 0.9% 1,000 ML 200 ML IV (07:55)
[2021-01-04 07:56] VITALS: BP 137/78; PULSE 84; RESP 16; TEMP 36.6; O2SAT 95; BMI 31.3
--- NOTE | 2021-01-04 08:17 | PM.OP.ENDO ---
Operative Date/Time/Diagnoses Date of procedure: 01/04/21 Time of procedure: 08:17 Pre-op diagnosis: Personal history of colon polyps, due for surveillance colonoscopy Post-op diagnosis: other (No new polyps found on today's exam) Procedure & Clinicians Study performed: Colonoscopy Procedural sedation performed by the endoscopist Same procedure as scheduled: Yes Indications: Personal history of colon polyps, due for surveillance colonoscopy Surgeon: Dottie Garcia Procedure Notes SCOAP/Timeout: Performed Procedure in detail: The patient was brought to the room and placed in left lateral decubitus position with all bony prominences padded. A time-out was performed and then the patient was given procedural sedation starting with 4 mg of Versed and 100 mcg of fentanyl. An additional 50 micro g of fentanyl was given during the procedure. Vitals were monitored throughout the procedure and remained stable. Once adequately sedated, the procedure was begun. A rectal exam was performed revealing no abnormalities. The colonoscope was then introduced to the rectum and advanced to the cecum in the usual fashion. The cecum was identified by the appendiceal orifice, the mucosal tri-fold, and the ileocecal valve. The scope was then retracted while rotating side to side and examining each mucosal fold. The previously tattooed area of the colon was seen, with no evidence of a recurrent polyp or any abnormality at that site. Moderate diverticulosis was seen through the descending and sigmoid colon. No polyps or masses were seen on today's exam. At the conclusion of the procedure retroflexion was performed and small grade 1-2 internal hemorrhoids without stigmata of bleeding were seen. The scope was then withdrawn from the rectum the procedure was concluded. The patient tolerated the procedure well and was transferred to the PACU in stable condition. Scope withdrawal time: 10 Sedation minutes: 23 Findings: diverticulosis Specimen(s): none sent Complications: none Impression: Diverticulosis, otherwise normal colon Post-procedure Recommendations: Colonscopy in 5 years (Due to personal history of advanced colon polyps) Follow up: as needed Disposition: PACU
[2021-01-04] MEDS: fentaNYL 250 MCG/5 ML INJ IV (08:47)
[2021-01-04] MEDS: MIDAZOLAM 5 MG/5 ML VIAL IV (08:47)
[2021-01-04 08:48] VITALS: BP 118/90; PULSE 80; RESP 17; TEMP 36.2; O2SAT 94
[2021-01-04 08:53] VITALS: BP 105/60; PULSE 65; RESP 13; O2SAT 93
[2021-01-04 08:58] VITALS: BP 122/80; PULSE 68; RESP 18; O2SAT 95
[2021-01-04 09:03] VITALS: BP 122/86; PULSE 65; RESP 18; TEMP 36.1; O2SAT 98
== END 2021-01-04 09:08 | disposition home or self-care (01) ==
PROVIDERS: PCP Family Medicine; Referring Provider Family Medicine; Visit Provider Surgery
PROC: 0DJD8ZZ Inspection of Lower Intestinal Tract, Via Natural or Artificial Opening Endoscopic (ICD-10-PCS; CPT 45378; principal; 2021-01-04 08:30)
DX: Z12.11 Encounter for screening for malignant neoplasm of colon (principal); Z86.010 Personal history of colon polyps; K57.30 Diverticulosis of large intestine without perforation or abscess without bleeding; K64.0 First degree hemorrhoids
CPT/HCPCS: 45378; 99152; J2250; J3010

== ENCOUNTER → 2021-11-05 10:00 | Outpatient (CLI) | payer OTHER, SELFPAY ==
--- NOTE | 2021-11-05 10:03 | DI.MG.S_ITS ---
BILATERAL DIGITAL SCREENING MAMMOGRAM 3D/2D WITH CAD: 11/05/2021 CLINICAL: Routine screening. Comparison is made to exams dated: 11/02/2020 mammogram - [facility], 11/01/2019 mammogram, 11/01/2019 ultrasound, and 04/19/2019 mammogram - [facility]. The tissue of both breasts is heterogeneously dense. This may lower the sensitivity of mammography. Current study was also evaluated with a Computer Aided Detection (CAD) system. No significant masses, calcifications, or other findings are seen in either breast. There has been no significant interval change. IMPRESSION: NEGATIVE There is no mammographic evidence of malignancy. A 1 year screening mammogram is recommended. This exam was interpreted at Station ID: [id number]. NOTE: For mammograms, a report in lay terms will be sent to the patient. Approximately 15% of breast malignancies will not be visualized mammographically. In the management of a palpable breast mass, a negative mammogram must not discourage biopsy of a clinically suspicious lesion. Electronically Signed By: Gerry lozoya/ez:11/05/2021 10:57:24 letter sent: Normal Exam ACR BI-RADS Category 1: Negative [id number]
== END ==
PROVIDERS: PCP Family Medicine; Referring Provider Family Medicine; Visit Provider Family Medicine
DX: Z12.31 Encounter for screening mammogram for malignant neoplasm of breast (principal)
CPT/HCPCS: 77063; 77067

== ENCOUNTER 2023-09-17 19:11 | Emergency (ER) | payer OTHER, SELFPAY ==
[2023-09-17 19:15] VITALS: BP 153/87; PULSE 90; RESP 18; TEMP 36.6; O2SAT 97; BMI 35.6
--- NOTE | 2023-09-17 19:47 | ED_ITS ---
HPI - General Adult General Chief complaint: Fever Stated complaint: COVID + Time Seen by Provider: 09/17/23 19:30 Source: patient Mode of arrival: Ambulatory History of Present Illness HPI narrative: 48-year-old female. Tested positive for COVID approximately 3-4 days ago. She is here because she is having a left-sided sore throat. She was concerned that maybe she had an infection other than COVID such as strep throat or tonsillitis. No problems swallowing. No problems breathing. Related Data Home Medications Medication Instructions Recorded Confirmed olopatadine 0.2 % eye drops 0.2 % OPHTH ##0 03/22/17 (Pataday) selenomethionine 200 mcg tablet 200 mcg PO ##0 12/25/17 Allergies Allergy/AdvReac Type Severity Reaction Status Date / Time No Known Drug Allergies Allergy Verified 01/04/21 07:52 Review of Systems Constitutional Constitutional: Reports system reviewed and no additional complaints, except as documented ENT Ears, Nose, Mouth, and Throat: Reports system reviewed and no additional complaints, except as documented Respiratory Respiratory: Reports system reviewed and no additional complaints, except as documented Integumentary/Breasts Skin/Breast: Reports system reviewed and no additional complaints, except as documented Patient History Medical History Chronic back pain Social History household members: spouse Smoking Status: Former smoker Smoking Status: Former smoker alcohol intake frequency: a few times a week Substance Use Type: does not use Exam Initial Vital Signs Initial Vital Signs: Vital Signs Temperature 98 F 09/17/23 19:15 Pulse Rate 90 09/17/23 19:15 Respiratory Rate 18 09/17/23 19:15 Blood Pressure 153/87 H 09/17/23 19:15 Pulse Oximetry 97 09/17/23 19:15 Oxygen Delivery Method Room Air 09/17/23 19:15 Const General: cooperative, comfortable and No ill appearing [facility] Head: normal to inspection and normocephalic Face and sinus: normal facial exam Mouth: oral mucosae normal, oropharynx normal and moist mucous membranes Throat: posterior oropharynx abnormal Neck Lymphatic: lymphadenopathy (Left-sided submandibular) Resp Effort & Inspection: normal respiratory effort Skin General: no rashes or lesions noted Course Vital Signs Vital signs: Vital Signs - 8 hr 09/17/23 19:15 Temperature 98 F Pulse Rate 90 Respiratory Rate 18 Blood Pressure 153/87 H Pulse Oximetry 97 Oxygen Delivery Method Room Air Medical Decision Making MDM Narrative Medical decision making narrative: She does have left-sided submandibular lymphadenopathy. No respiratory distress. Tolerating secretions. Do suspect that this is related to the COVID infection. There was no indication for antibiotics. Vital reassurance to the patient. She was given return precautions. She expressed understanding and agreement Discharge Plan Departure Patient Disposition: Home Clinical Impression: COVID-19, Lymphadenopathy of head and neck Instructions: COVID-19 Activity Restrictions/Additional Instructions: Continue to follow all of the current CDC guidelines with regard to your positive COVID-19 status. These can be found on the CDC website. You can take Tylenol for any fevers or body aches. Return to the emergency department for new or worsening symptoms. Prescriptions: No Action olopatadine [Pataday] 2.5 ML drops 0.2 % OPHTH Qty: 0 selenomethionine 200 MCG tablet 200 mcg PO Qty: 0 Referrals: Kathi Beatty DO [Primary Care Provider] - Stand Alone Forms: Patient Portal/API
== END 2023-09-17 19:54 | disposition home or self-care (01) ==
PROVIDERS: Emergency Provider Emergency Medicine; PCP Family Medicine
DX: U07.1 COVID-19 (principal); R59.1 Generalized enlarged lymph nodes
CPT/HCPCS: 99281